=== PATIENT | male | born 1990 | race American Indian/Alaskan Native ===

== ENCOUNTER 2017-09-29 18:58 | Emergency (ER) | payer SELFPAY ==
[2017-09-29 20:54] VITALS: BP 108/70
[2017-09-29] MEDS ORDERED: TYLENOL ONE (20:54)
[2017-09-29] MEDS ORDERED: TYLENOL PO ONE (20:54)
--- NOTE | 2017-09-30 01:30 | Emergency Department Report ---
ED Headache HPI - General Chief Complaint: Headache Stated Complaint: HEADACHE Time Seen by Provider: 09/30/17 01:28 Source: patient - History of Present Illness Initial Comments: 27-year-old male past medical history smoker presents with complaint of anterior headache. Patient states he woke up with headache this morning and slightly swollen upper lip. Denies any head trauma. Denies any fever or chills denies any nausea or vomiting denies any chest pain palpitations abdominal pain. Patient is awake alert and oriented 3 fully lucid and ambulatory. Accompanied by significant other at bedside. Denies taking any [id number] medicines for his headache or swollen lip. No significant swelling on initial interview and exam. Patient is awake alert and oriented 3 fully lucid and ambulatory and does not seem to be in any acute distress. Patient states symptoms have significantly decreased since earlier today. Quality: mild Head Injury Location: frontal Recent Head Trauma: no recent headache/trauma Associated Symptoms: denies symptoms Allergies/Adverse Reactions: Allergies No Known Allergies Allergy (Verified 10/19/14 19:51) Home Medications: Ambulatory Orders Acetaminophen/Codeine [Tylenol #3] 1 tab PO Q6H PRN #14 tab 10/19/14 Amoxicillin [Amoxicillin TAB] 875 mg PO BID #14 tablet 10/19/14 Acetaminophen [Acetaminophen TAB] 500 mg PO Q6HR PRN #10 tablet 09/30/17 diphenhydrAMINE [Benadryl CAP] 25 mg PO Q8HR PRN #1 bottle 09/30/17 ED Review of Systems ROS: Stated complaint: HEADACHE Other details as noted in HPI Constitutional: malaise. denies: chills, fever Eyes: denies: eye pain, eye discharge, vision change ENT: denies: ear pain, throat pain Respiratory: denies: cough, shortness of breath, wheezing Cardiovascular: denies: chest pain, palpitations Endocrine: no symptoms reported Gastrointestinal: denies: abdominal pain, nausea, diarrhea Genitourinary: denies: urgency, dysuria Musculoskeletal: denies: back pain, joint swelling, arthralgia Skin: denies: rash, lesions Neurological: headache. denies: weakness, paresthesias Psychiatric: denies: anxiety, depression Hematological/Lymphatic: denies: easy bleeding, easy bruising ED Past Medical Hx - Past Medical History Previous Medical History?: No Hx Hypertension: No Hx CVA: No Hx Heart Attack/AMI: No Hx Congestive Heart Failure: No Hx Diabetes: No Hx Deep Vein Thrombosis: No Hx Pulmonary Embolism: No Hx GERD: No Hx Liver Disease: No Hx Renal Disease: No Hx Sickle Cell Disease: No Hx Arthritis: No Hx Headaches / Migraines: No Hx Seizures: No Hx Kidney Stones: No Hx Psychiatric Treatment: No Hx Asthma: No Hx COPD: No Hx Tuberculosis: No Hx Dementia: No Hx HIV: No - Surgical History Past Surgical History?: Yes Hx Coronary Stent: No Hx Open Heart Surgery: No Hx Pacemaker: No Hx Internal Defibrillator: No Hx Cholecystectomy: No Hx Appendectomy: No Hx Breast Surgery: No - Social History Smoking Status: Current Every Day Smoker Substance Use Type: None - Medications Home Medications: Home Medications Medication Instructions Recorded Confirmed Last Taken Type Acetaminophen/Codeine [Tylenol #3] 1 tab PO Q6H PRN #14 tab 10/19/14 Unknown Rx Amoxicillin [Amoxicillin TAB] 875 mg PO BID #14 tablet 10/19/14 Unknown Rx Acetaminophen [Acetaminophen TAB] 500 mg PO Q6HR PRN #10 tablet 09/30/17 Unknown Rx diphenhydrAMINE [Benadryl CAP] 25 mg PO Q8HR PRN #1 bottle 09/30/17 Unknown Rx ED Physical Exam - General Limitations: No Limitations General appearance: alert, in no apparent distress - Head Head exam: Present: atraumatic, normocephalic - Eye Eye exam: Present: normal appearance, PERRL, EOMI - ENT ENT exam: Present: normal orophraynx (oropharynx is open and patent uvula is midline and there is no clinical indication of angioedema or [place]'s angina at this time), mucous membranes moist, other (slight swelling of left upper lip on clinical exam) - Neck Neck exam: Present: normal inspection, full ROM - Respiratory Respiratory exam: Present: normal lung sounds bilaterally. Absent: respiratory distress - Cardiovascular Cardiovascular Exam: Present: regular rate, normal rhythm. Absent: systolic murmur, diastolic murmur, rubs, gallop - GI/Abdominal GI/Abdominal exam: Present: soft (abdomen soft nontender nondistended), normal bowel sounds - Rectal Rectal exam: Present: deferred - Extremities Exam Extremities exam: Present: normal inspection - Back Exam Back exam: Present: normal inspection - Neurological Exam Neurological exam: Present: alert, oriented X3, CN II-XII intact, normal gait - Expanded Neurological Exam Expanded Patient oriented to: Present: person, place, time Cranial nerves: EOM's Intact: Normal, Facial Sensation: Normal Cerebellar function: Finger to Nose: Normal, Heel to White: Normal, [place]: Normal Sensory exam: Upper Extremity Light Touch: Normal, Lower Extremity Light Touch: Normal Motor strength exam: RUE: 5, LUE: 5, RLE: 5, LLE: 5 DTR: tricep (R): 3+, tricep (L): 3+, knee (R): 3+, knee (L): 3+ Best Eye Response ([place]): (4) open spontaneously Best Motor Response ([place]): (6) obeys commands Best Verbal Response ([place]): (5) oriented [place] Total: 15 - Psychiatric Psychiatric exam: Present: normal affect, normal mood - Skin Skin exam: Present: warm, dry, intact, normal color. Absent: rash ED Course Vital Signs 09/29/17 20:47 Temperature 98.6 F Pulse Rate 64 Respiratory 16 Rate Blood Pressure 108/70 O2 Sat by Pulse 99 Oximetry ED Medical Decision Making - Medical Decision Making A/P: Acute headache, left upper lip swelling 1-based on clinical exam patient may have had possible allergic reaction which has since resolved as per what patient told me. Slight minimal swelling of left upper lip but oropharynx is patent and patient has no signs of respiratory distress. Speaking in full sentences no audible wheezing or stridor on clinical exam 2-patient refused to have a head CT done states that he has personal matters to attend to, would return at his earliest convenience. I advised patient that the reason I wanted to obtain a head CT is because he states that the headache was moderate+anterior frontal and throbbing. Patient stated he understood my clinical concern for bleed versus mass versus migraine. Patient decided to leave before I could finish my medical evaluation. His conversation was witnessed by patient's significant other and pneumatic systems operator Ms. Roach. Advised patient that he is at risk for serious illness, permanent disability or if I do not complete my medical workup. Patient stated he understood the risks and would follow-up at his earliest convenience 3-Tylenol when necessary, Benadryl when necessary. Advised the patient to return to the ED as soon as possible. Patient signed out AGAINST MEDICAL ADVICE Critical care attestation.: If time is entered above; I have spent that time in minutes in the direct care of this critically ill patient, excluding procedure time. ED Disposition Clinical Impression: Left against medical advice, Swollen upper lip Headache Qualifiers: Headache type: unspecified Headache chronicity pattern: acute headache Intractability: not intractable Qualified Code(s): R51 - Headache Disposition: DC- TO HOME OR SELFCARE Is pt being admited?: No Does the pt Need Aspirin: No Condition: Stable Instructions: Against Medical Advice (ED), Acute Headache (ED) Prescriptions: Acetaminophen [Acetaminophen TAB] 500 mg PO Q6HR PRN #10 tablet PRN Reason: Headache diphenhydrAMINE [Benadryl CAP] 25 mg PO Q8HR PRN #1 bottle PRN Reason: Allergic Reaction Referrals: [facility] [Outside] - 3-5 Days [facility] [Outside] - 3-5 Days Forms: AMA Form, Work/School Release Form(ED) Time of Disposition: 01:48
== END 2017-09-30 02:30 | disposition home or self-care (01) ==
LOC: ED 18:58
DX: R51 Headache (principal); K13.0 Diseases of lips; F17.200 Nicotine dependence, unspecified, uncomplicated
CPT/HCPCS: 99282